=== PATIENT | male | born 1960 | race Caucasian/White ===

== ENCOUNTER → 2020-03-19 13:50 | Outpatient (CLI) | payer BC, SELFPAY ==
[2020-03-21 11:42] LABS: Prostate Specific Ag 10.5 ng/mL (0.0-4.0)
== END ==
PROVIDERS: Visit Provider Urology
DX: R97.20 Elevated prostate specific antigen [PSA] (principal)
CPT/HCPCS: 36415; 84153; 84154

== ENCOUNTER → 2020-10-04 15:33 | Outpatient (CLI) | payer BC, SELFPAY ==
[2020-10-06 07:33] LABS: PSA, Free 1.07 ng/mL; Prostate Specific Ag 7.7 ng/mL (0.0-4.0)
== END ==
PROVIDERS: Visit Provider Urology
DX: R97.20 Elevated prostate specific antigen [PSA] (principal)
CPT/HCPCS: 36415; 84153; 84154

== ENCOUNTER → 2021-04-08 15:30 | Outpatient (CLI) | payer BC, SELFPAY ==
[2021-04-10 08:25] LABS: PSA, Free 3.01 ng/mL; Prostate Specific Ag 11.6 ng/mL (0.0-4.0)
== END ==
PROVIDERS: Visit Provider Urology
DX: R97.20 Elevated prostate specific antigen [PSA] (principal)
CPT/HCPCS: 84153; 84154

== ENCOUNTER → 2021-10-21 15:50 | Outpatient (CLI) | payer BC, SELFPAY ==
[2021-10-23 11:32] LABS: PSA, Free 1.36 ng/mL; Prostate Specific Ag 8.5 ng/mL (0.0-4.0)
== END ==
PROVIDERS: PCP Family Medicine; Visit Provider Urology
DX: R97.20 Elevated prostate specific antigen [PSA] (principal)
CPT/HCPCS: 36415; 84153; 84154